=== PATIENT | female | born 1985 | race Native Hawaiian/Other Pacific Islander ===

== ENCOUNTER 2021-02-02 15:17 | Outpatient (CLI) | payer OTHER | END 2021-02-02 22:00 | disposition home or self-care (01) | LOC: CT 15:17 | PROVIDERS: ATTEND Internal Medicine | DX: R31.9 Hematuria, unspecified (principal) ==

== ENCOUNTER 2021-06-07 12:15 | Outpatient (CLI) | payer OTHER | END 2021-06-07 19:04 | disposition home or self-care (01) | LOC: RAD 12:15 | PROVIDERS: ATTEND Internal Medicine | DX: M54.6 Pain in thoracic spine (principal); R07.81 Pleurodynia ==

== ENCOUNTER 2023-01-11 08:24 | Outpatient (CLI) | payer OTHER | END 2023-01-11 19:19 | disposition home or self-care (01) | LOC: US 08:24 | PROVIDERS: ATTEND Internal Medicine | DX: R94.5 Abnormal results of liver function studies (principal) ==